=== PATIENT | female | born 1970 | race Caucasian/White ===

== ENCOUNTER 2019-12-19 14:10 | Outpatient (CLI) | payer BC, SELFPAY ==
--- NOTE | 2019-12-19 14:21 | MM_ITS ---
WS: [id number] BILATERAL DIGITAL SCREENING MAMMOGRAPHY WITH CAD CLINICAL INFORMATION: SCREEN HISTORY: Screening mammogram. No current complaints. COMPARISON: May 09, 2015 TECHNIQUE: Bilateral CC and MLO views. FINDINGS: Scattered fibroglandular densities bilaterally. No suspicious focal mass, asymmetry, calcifications, or architectural distortion. No evidence of malignancy. MM/[place] [id number] IMPRESSION: BI-RADS: 1-Negative FOLLOW UP: 1 Year Follow-up Recommend return to annual screening mammography.
== END 2019-12-19 14:11 | disposition home or self-care (01) ==
LOC: RADSHAW 14:17
PROVIDERS: PCP Family Medicine; Visit Provider Family Medicine
DX: Z12.31 Encounter for screening mammogram for malignant neoplasm of breast (principal)
CPT/HCPCS: 77067

== ENCOUNTER 2020-10-22 10:37 | Outpatient (CLI) | payer BC, SELFPAY ==
--- NOTE | 2020-10-22 10:42 | MR_ITS ---
WS: [id number] MRI ORBITS with and without CONTRAST. COMPARISON: None Multiplanar, multisequence imaging is performed with and without contrast. No acute infarct or hemorrhage identified. On the T2 and FLAIR sequences there is confluent and scatt ered T2 and FLAIR signal hyperintensities within a periventricular/pericallosal distribution which is more than expected for age. There is a perpendicular distribution of these white matter lesions in r elationship to the corpus callosum. No obvious enhancement of these white matter lesions. On the T1 s equence no large area of necrotic or low attenuation disease. There is also increased signal centrall y within the nayeli. No definite cerebellar abnormalities. There are a few white matter lesions in the temporal lobes. No inferior displacement of cerebellar tonsils. Clivus and pituitary gland are normal. Normal size an d signal within the optic nerves. No definite transient trapping or optic neuritis at this time. No p rotrusion of the disc into the globe. Globes are symmetric bilaterally. No retrobulbar mass. Bilateral cervical chain lymph nodes measure up to 1 cm. MR/MR orbit face neck wo/w* [id number] IMPRESSION: 1. No evidence for optic neuritis or mass. 2. Significant white matter lesions within the brain in a distribution suggest husam of demyelinating disease/multiple sclerosis. Differential would also includ e Lyme disease. 3. No enhancing demyelinating lesion.
[2020-10-22] MEDS: gadobenate dimeglumine 20 mL vial IV (11:35)
== END 2020-10-22 10:38 | disposition home or self-care (01) ==
LOC: RADSHAW 10:41
PROVIDERS: PCP Family Medicine; Visit Provider Ophthalmology
DX: H47.10 Unspecified papilledema (principal)
CPT/HCPCS: 70543; A9577

== ENCOUNTER 2021-07-30 16:34 | Emergency (ER) | payer BC, SELFPAY ==
[2021-07-30 17:27] VITALS: BP 99/88; PULSE 78; RESP 16; TEMP 37.2; O2SAT 89
--- NOTE | 2021-07-30 17:34 | XRR_ITS ---
PROCEDURE INFORMATION: Exam: XR Chest Exam date and time: 07/30/2021 5:34 PM Age: 51 years old Clinical indication: Cough and shortness of breath; Additional info: Dyspnea/cough TECHNIQUE: Imaging protocol: XR of the chest. Views: 1 view. COMPARISON: MR orbit face neck wo/w* [id number] 10/22/2020 10:57 AM FINDINGS: Lungs: Bibasilar opacities are noted which may represent pneumonia. Pleural spaces: Unremarkable. No pleural effusion. No pneumothorax. Heart/Mediastinum: Unremarkable. No cardiomegaly. Bones/joints: Unremarkable. XR/XR chest 1V portable [id number] IMPRESSION: Bibasilar pneumonia.
--- NOTE | 2021-07-30 18:11 | ED_ITS ---
Documented by User: Trev Kwong DO 07/31/21 06:25 HPI - COVID General: Chief Complaint: COVID symptoms Stated Complaint: FEVER, N/V, COUGH Time Seen by Provider: 07/30/21 17:33 Triage information: Has fever, cough or shortness of breath . No known COVID + exposure last 14 days History of Present Illness: HPI Narrative: 51-year-old female presents to the emergency room with complaints of nausea vomiting cough and fever that began 5 days ago. She had temps at home up to 101-103 at times. She is not had any anosmia or diarrhea. She has not previously been vaccinated for Covid her cough has been nonproductive. She is not normally on any oxygen but is now requiring 2 L by nasal cannula to maintain sats in the mid 90s. Room air O2 sat on presentation was 89% MD complaint: has COVID symptoms Prior covid testing: no COVID 19 common symptoms: positive fever(s), chills, cough, non-productive cough, dyspnea, fatigue, body aches, headache(s), nasal congestion, nausea and vomiting; negative productive cough, loss of sense of smell and/or taste, throat pain or diarrhea COVID 19 other sytmptoms: positive requiring oxygen; negative chest pain Onset (ago): day(s) (5) Severity: moderate Pertinent comorbid conditions: obesity Treatment prior to arrival: none COVID Results: No Data to Display Review of Systems Const: Reports: fever(s), chills, body aches and fatigue ENMT: Reports: nasal congestion; Denies: throat pain Card: Denies: chest pain Resp: Reports: dyspnea and non-productive cough; Denies: productive cough GI: Reports: nausea and vomiting; Denies: diarrhea : Denies: flank pain, difficulty voiding, dysuria, urinary frequency or urinary urgency Skin/Breast: Denies: rash or pruritus Neuro: Reports: headache(s) PFSH ED PFSH: Medical History Obesity Physical Exam Const: GENERAL APPEARANCE: cooperative and comfortable ORIENTATION/CONSCIOUSNESS: Yes awake, Yes oriented to person, Yes oriented to place and Yes oriented to time HENMT: COMMON NORMALS: normocephalic, atraumatic and hearing grossly normal bilaterally HEAD & SCALP: normocephalic and atraumatic Neck/C-Spine: COMMON NORMALS: no JVD Resp: AUSCULTATION: crackles and wheezes Cardio: COMMON NORMALS: no JVD, regular rate, regular rhythm and No murmurs pr esent (Cardio) RATE: regular rate RHYTHM: regular rhythm GI: COMMON NORMALS: Soft to palpation and No hepatosplenomegaly present AUSCULTATION: Yes normoactive bowel sounds PALPATION: Yes Soft to palpation, No Tenderness to palpation present (GI), No Guarding due to palpation present (GI) and Yes No hepatosplenomegaly present Extremity: COMMON NORMALS: normal to inspection, capillary refill normal, no clubbing, cyanosis or edema, no calf tenderness and no pedal edema Neuro: SENSORIUM/ORIENTATION: Yes oriented to person, Yes oriented to place and Yes oriented to time Skin: COMMON NORMALS: no rashes or lesions noted GENERAL SKIN EXAM: no rashes or lesions noted Course Vital Signs: Vital signs: Vital Signs Temperature 99.0 F 07/30/21 17:27 Pulse Rate 81 07/30/21 18:49 Respiratory Rate 23 H 07/30/21 18:49 Blood Pressure 126/82 07/30/21 18:49 Pulse Oximetry 97 07/30/21 18:49 MDM - COVID MDM Narrative: Medical decision making narrative: Initial O2 sat 89% corrected with 2 to 3 L by nasal cannula. Laboratory tests pending discussed with Dr. Vila care transferred to Dr. Vila at change of see note final diagnosis and disposition. Lab Data: Labs: Lab Results 07/30/21 07/30/21 07/30/21 18:45 18:45 18:45 WBC 10.1 10^3/uL H 10 ^3/uL (4.0-10.0) RBC 4.87 10^6/uL 10^6 /uL (4.1-5.3) Hgb 12.9 g/dL g/dL (11.5-15.3) Hct 39.6 % % (37.0-47.0) MCV 81.3 fl fl (81-99) MCH 26.5 pg L pg (28.0-34.0) MCHC 32.6 g/dL g/dL (30.0-36.0) RDW 13.2 % % (12.1-15.1) Plt Count 169 10^3/cmm 10^3 /cmm (130-400) MPV 12.0 fL H fL (7.4-10.4) Lymph % (Auto) Not Reportable Henderson % (Auto) Not Reportable Lymph # (Auto) Not Reportable [place] # (Auto) Not Reportable Total Counted Atypical Lymphs % Segmented Neutroph ils Band Neutrophils Lymphocytes (Manua l) Monocytes (Manual) Eosinophils (Manua l) Basophils (Manual) Platelet Estimate Sodium 136 mmol/L mmol/L (136-145) Potassium 4.0 mmol/L mmol/L (3.5-5.1) Chloride 98 mmol/L mmol/L (98-107) Carbon Dioxide 19 mmol/L L mmol/ L (22-29) Anion Gap 23.0 H (5-19) BUN 46 mg/dL H mg/dL (6-20) Creatinine 2.0 mg/dL H mg/dL (0.5-0.9) GFR Calculation 26.3 mL/min L mL/ min (90-130) Glucose 112 mg/dL mg/dL (65-115) Calculated Osmolal ity 295 mOsm/kg mOsm/ kg (285-295) Calcium 8.4 mg/dL L mg/dL (8.5-10.5) Total Bilirubin 0.4 mg/dL mg/dL (0.15-1.2) AST 24 U/L U/L (0-32) ALT 10 U/L U/L (0-33) Alkaline Phosphata se 61 IU/L IU/L (35-105) Total Protein 7.4 g/dL g/dL (6.6-8.7) Albumin 3.4 g/dL L g/dL (3.5-5.2) Globulin 4.0 g/dL g/dL (1.3-4.6) Nasal Influ A H1 2 009 PCR Not detected (NOT DETECT) Coronavirus 229E ( PCR) Not detected (NOT DETECT) Influenza A (H1) P CR Not detected (NOT DETECT) Influenza A (H3) P CR Not detected (NOT DETECT) Influenza Type A ( PCR) Not detected (NOT DETECT) Influenza Type B ( PCR) Not detected (NOT DETECT) SARS-CoV-2 (PCR) Detected A (NOT DETECT) 07/30/21 18:45 WBC RBC Hgb Hct MCV MCH MCHC RDW Plt Count MPV Lymph % (Auto) Henderson % (Auto) Lymph # (Auto) Henderson # (Auto) Total Counted 100 (0-100) Atypical Lymphs % 0.0 % % (0-5) Segmented Neutroph ils 79 % % Band Neutrophils 5.0 % % Lymphocytes (Manua l) 11 % % Monocytes (Manual) 4.0 % % Eosinophils (Manua l) 1 % % Basophils (Manual) 0.0 % % Platelet Estimate Normal (Normal) Sodium Potassium Chloride Carbon Dioxide Anion Gap BUN Creatinine GFR Calculation Glucose Calculated Osmolal ity Calcium Total Bilirubin AST ALT Alkaline Phosphata se Total Protein Albumin Globulin Nasal Influ A H1 2 009 PCR Coronavirus 229E ( PCR) Influenza A (H1) P CR Influenza A (H3) P CR Influenza Type A ( PCR) Influenza Type B ( PCR) SARS-CoV-2 (PCR) COVID Results: No Data to Display Discharge Plan Discharge Patient Disposition: Home Clinical Impression: COVID-19 Condition: Stable Prescriptions: New azithromycin 250 mg tablet See Rx Instructions .ROUTE .COMPLEX Qty: 6 RF: 0 albuterol sulfate 90 mcg/actuation HFA aerosol inhaler 2 inh INHALATION Q6H PRN (Reason: shortness of breath or wheezing) Qty: 8 RF: 0 ondansetron 4 mg tablet,disintegrating 4 mg PO Q6H PRN (Reason: nausea and vomiting) Qty: 14 RF: 0 Discharge Orders: Discharge ED (Routine); Ordered 07/30/21 Ordered By: Mila Vila Other Ambulatory Orders: DME: Oxygen (Order) Location: None Selected Ordered By: Mila Vila Referrals: Fabián Sharma MD [Primary Care Provider] - 1-3 days Discharge Diet: Advance as tolerated Discharge Activity: Resume usual activity Patient Instructions: COVID-19 (Coronavirus Disease 2019) (ED) Coding Level of Care Code ED Automation And Controls Instructor for Chg Fwd Exam Comprehensive Documented by User: Mila Vila MD 07/30/21 21:19 HPI - COVID General: Chief Complaint: COVID symptoms Stated Complaint: FEVER, N/V, COUGH Time Seen by Provider: 07/30/21 17:33 COVID Results: No Data to Display [facility] ED PFSH: Medical History Obesity Course Vital Signs: Vital signs: Vital Signs Temperature 99.0 F 07/30/21 17:27 Pulse Rate 81 07/30/21 18:49 Respiratory Rate 23 H 07/30/21 18:49 Blood Pressure 126/82 07/30/21 18:49 Pulse Oximetry 97 07/30/21 18:49 MDM - COVID MDM Narrative: Medical decision making narrative: Patient presents here with cough dyspnea bibasilar pneumonia on x-ray this is due to Covid pneumonia. Patient is Covid positive here states she is got date on symptoms we will set her up on home oxygen she is actually around 93% here when she ambulated with RT will place her on azithromycin patient given a steroid here she will be prescribed albuterol inhaler she is to monitor oxygen at home if she has hypoxia she is to return she understands and agrees to plan. Lab Data: Labs: Lab Results 07/30/21 07/30/21 07/30/21 18:45 18:45 18:45 WBC 10.1 10^3/uL H 10 ^3/uL (4.0-10.0) RBC 4.87 10^6/uL 10^6 /uL (4.1-5.3) Hgb 12.9 g/dL g/dL (11.5-15.3) Hct 39.6 % % (37.0-47.0) MCV 81.3 fl fl (81-99) MCH 26.5 pg L pg (28.0-34.0) MCHC 32.6 g/dL g/dL (30.0-36.0) RDW 13.2 % % (12.1-15.1) Plt Count 169 10^3/cmm 10^3 /cmm (130-400) MPV 12.0 fL H fL (7.4-10.4) Lymph % (Auto) Not Reportable Henderson % (Auto) Not Reportable Lymph # (Auto) Not Reportable Henderson # (Auto) Not Reportable Total Counted Atypical Lymphs % Segmented Neutroph ils Band Neutrophils Lymphocytes (Manua l) Monocytes (Manual) Eosinophils (Manua l) Basophils (Manual) Platelet Estimate Sodium 136 mmol/L mmol/L (136-145) Potassium 4.0 mmol/L mmol/L (3.5-5.1) Chloride 98 mmol/L mmol/L (98-107) Carbon Dioxide 19 mmol/L L mmol/ L (22-29) Anion Gap 23.0 H (5-19) BUN 46 mg/dL H mg/dL (6-20) Creatinine 2.0 mg/dL H mg/dL (0.5-0.9) GFR Calculation 26.3 mL/min L mL/ min (90-130) Glucose 112 mg/dL mg/dL (65-115) Calculated Osmolal ity 295 mOsm/kg mOsm/ kg (285-295) Calcium 8.4 mg/dL L mg/dL (8.5-10.5) Total Bilirubin 0.4 mg/dL mg/dL (0.15-1.2) AST 24 U/L U/L (0-32) ALT 10 U/L U/L (0-33) Alkaline Phosphata se 61 IU/L IU/L (35-105) Total Protein 7.4 g/dL g/dL (6.6-8.7) Albumin 3.4 g/dL L g/dL (3.5-5.2) Globulin 4.0 g/dL g/dL (1.3-4.6) Nasal Influ A H1 2 009 PCR Not detected (NOT DETECT) Coronavirus 229E ( PCR) Not detected (NOT DETECT) Influenza A (H1) P CR Not detected (NOT DETECT) Influenza A (H3) P CR Not detected (NOT DETECT) Influenza Type A ( PCR) Not detected (NOT DETECT) Influenza Type B ( PCR) Not detected (NOT DETECT) SARS-CoV-2 (PCR) Detected A (NOT DETECT) 07/30/21 18:45 WBC RBC Hgb Hct MCV MCH MCHC RDW Plt Count MPV Lymph % (Auto) Henderson % (Auto) Lymph # (Auto) Henderson # (Auto) Total Counted 100 (0-100) Atypical Lymphs % 0.0 % % (0-5) Segmented Neutroph ils 79 % % Band Neutrophils 5.0 % % Lymphocytes (Manua l) 11 % % Monocytes (Manual) 4.0 % % Eosinophils (Manua l) 1 % % Basophils (Manual) 0.0 % % Platelet Estimate Normal (Normal) Sodium Potassium Chloride Carbon Dioxide Anion Gap BUN Creatinine GFR Calculation Glucose Calculated Osmolal ity Calcium Total Bilirubin AST ALT Alkaline Phosphata se Total Protein Albumin Globulin Nasal Influ A H1 2 009 PCR Coronavirus 229E ( PCR) Influenza A (H1) P CR Influenza A (H3) P CR Influenza Type A ( PCR) Influenza Type B ( PCR) SARS-CoV-2 (PCR) Imaging Data: CXR: Attestation: I personally reviewed and interpreted this imaging study as follows: Radiologist's impression: [address] [address] XRay Report Signed Patient: Wilma Farfan Unit #: [id number] : 1970 Age/Sex: 51 / F ADM Date: 07/30/21 Loc: ER Room/Bed: Attending Dr: Ordering Provider/Ordering MD: Trev Kwong DO Date of Service: 07/30/21 Procedure(s): XR chest 1V portable [id number] Accession Number(s): [id number] Report Number: [id number] PROCEDURE INFORMATION: Exam: XR Chest Exam date and time: 07/30/2021 5:34 PM Age: 51 years old Clinical indication: Cough and shortness of breath; Additional info: Dyspnea/cough TECHNIQUE: Imaging protocol: XR of the chest. Views: 1 view. COMPARISON: MR orbit face neck wo/w* [id number] 10/22/2020 10:57 AM FINDINGS: Lungs: Bibasilar opacities are noted which may represent pneumonia. Pleural spaces: Unremarkable. No pleural effusion. No pneumothorax. Heart/Mediastinum: Unremarkable. No cardiomegaly. Bones/joints: Unremarkable. XR/XR chest 1V portable [id number] IMPRESSION: Bibasilar pneumonia. Dictated By: Enrrique Fortune MD Signed By: Enrrique Fortune MD Signed Date/Time: 07/30/211828 DD/ 173 COVID Results: No Data to Display Discharge Plan Discharge Patient Disposition: Home Clinical Impression: COVID-19 Condition: Stable Prescriptions: New azithromycin 250 mg tablet See Rx Instructions .ROUTE .COMPLEX Qty: 6 RF: 0 albuterol sulfate 90 mcg/actuation HFA aerosol inhaler 2 inh INHALATION Q6H PRN (Reason: shortness of breath or wheezing) Qty: 8 RF: 0 ondansetron 4 mg tablet,disintegrating 4 mg PO Q6H PRN (Reason: nausea and vomiting) Qty: 14 RF: 0 Discharge Orders: Discharge ED (Routine); Ordered 07/30/21 Ordered By: Mila Vila Other Ambulatory Orders: DME: Oxygen (Order) Location: None Selected Ordered By: Mila Vila Referrals: Fabián Sharma MD [Primary Care Provider] - 1-3 days Discharge Diet: Advance as tolerated Discharge Activity: Resume usual activity Patient Instructions: COVID-19 (Coronavirus Disease 2019) (ED) Coding Level of Care Code ED Automation And Controls Instructor for [place] Fwd Exam Comprehensive
[2021-07-30 18:49] VITALS: BP 126/82; PULSE 81; RESP 23; O2SAT 96; O2SAT 97
[2021-07-30 18:52] LABS: Hematocrit 39.6 % (37.0-47.0); Hemoglobin 12.9 g/dL (11.5-15.3); Mean Corpuscular HGB Conc 32.6 g/dL (30.0-36.0); Mean Corpuscular Hemoglobin 26.5 pg (28.0-34.0); Mean Corpuscular Volume 81.3 fl (81-99); Platelet Count 169 10^3/cmm (130-400); Red Blood Count 4.87 10^6/uL (4.1-5.3); Red Cell Distribution Width 13.2 % (12.1-15.1); White Blood Count 10.1 10^3/uL (4.0-10.0)
[2021-07-30 19:16] LABS: Alanine Aminotransferase 10 U/L (0-33); Albumin Level 3.4 g/dL (3.5-5.2); Alkaline Phosphatase 61 IU/L (35-105); Blood Urea Nitrogen 46 mg/dL (6-20); Calcium 8.4 mg/dL (8.5-10.5); Carbon Dioxide 19 mmol/L (22-29); Chloride 98 mmol/L (98-107); Glomerular Filtration Rate 26.3 mL/min (90-130); Glucose 112 mg/dL (65-115); Osmolality Calculated 295 mOsm/kg (285-295); Sodium 136 mmol/L (136-145); Total Bilirubin 0.4 mg/dL (0.15-1.2); Total Protein 7.4 g/dL (6.6-8.7)
[2021-07-30 19:17] LABS: Aspartate Amino Transferase 24 U/L (0-32)
[2021-07-30 19:30] LABS: Lymphocytes 11 %; Segmented Neutrophils 79 %; Total Cells Counted 100 (0-100)
[2021-07-30 19:31] LABS: Eosinophils 1 %; Platelet Estimate Normal (Normal)
[2021-07-30 20:45] LABS: Adenovirus Not Detected (NOT DETECT); Chlamydia Pneumoniae Not Detected (NOT DETECT); Coronavirus 229E,HKU1,NL63,OC4 Not Detected (NOT DETECT); Human Metapneumovirus Not Detected (NOT DETECT); Human Rhinovirus/Enterovirus Not Detected (NOT DETECT); Influenza A Not Detected (NOT DETECT); Influenza A H1 Not Detected (NOT DETECT); Influenza A H1-2009 Not Detected (NOT DETECT); Influenza A H3 Not Detected (NOT DETECT); Influenza B Not Detected (NOT DETECT); Mycoplasma Pneumoniae Not Detected (NOT DETECT); Parainfluenza Virus Type 1 Not Detected (NOT DETECT); Parainfluenza Virus Type 2 Not Detected (NOT DETECT); Parainfluenza Virus Type 3 Not Detected (NOT DETECT); Parainfluenza Virus Type 4 Not Detected (NOT DETECT); Respiratory Syncytial Virus A Not Detected (NOT DETECT); Respiratory Syncytial Virus B Not Detected (NOT DETECT); SARS-COV-2 Detected (NOT DETECT)
[2021-07-30 20:57] LABS: Results from Genmark
[2021-07-30] MEDS: dexamethasone 10 mg/mL INJ 6 MG IVP (22:36)
== END 2021-07-30 22:38 | disposition home or self-care (01) ==
PROVIDERS: Family Medicine; Physician Assistant; Emergency Provider Emergency Medicine; PCP Family Medicine
DX: U07.1 COVID-19 (principal)
CPT/HCPCS: 71045; 80053; 85007; 85025; 87631; 87635; 96374; 99284; J1100

== ENCOUNTER 2024-02-16 07:35 | Outpatient (CLI) | payer OTHER, MEDICAID, SELFPAY ==
--- NOTE | 2024-02-16 07:49 | MM_ITS ---
WS: [id number] BILATERAL SCREENING DIGITAL TOMOSYNTHESIS MAMMOGRAM WITH CAD HISTORY: SCREENING COMPARISON: 12/19/2019, 05/09/2015 Bilateral CC and MLO views with tomosynthesis and synthetic mammography submitted. Computer aided det ection analyzed. Breast composition: There are scattered areas of fibroglandular density. No suspicious masses, microc alcifications or architectural distortion. MM/[place] [id number] IMPRESSION: BI-RADS: 1-Negative FOLLOW UP: 1 Year Follow-up
== END 2024-02-16 07:36 | disposition home or self-care (01) ==
LOC: RAD 07:35
PROVIDERS: PCP Family Medicine; Visit Provider Nurse Practitioner
DX: Z12.31 Encounter for screening mammogram for malignant neoplasm of breast (principal); R21 Rash and other nonspecific skin eruption
CPT/HCPCS: 77063; 77067

== ENCOUNTER 2025-02-19 08:35 | Outpatient (CLI) | payer OTHER, MEDICAID, SELFPAY ==
--- NOTE | 2025-02-19 08:46 | MM_ITS ---
WS: [id number] BILATERAL 3D TOMOSYNTHESIS DIGITAL SCREENING MAMMOGRAPHY WITH CAD CLINICAL INFORMATION: SCREENING MAMMOGRAM HISTORY: Screening mammogram. No current complaints. COMPARISON: 2023 TECHNIQUE: Bilateral CC and MLO views. FINDINGS: Scattered fibroglandular densities bilaterally. No suspicious focal mass, asymmetry, calcifications, or architectural distortion. No evidence of malignancy. MM/MM scr tomosynthesis [id number] IMPRESSION: DENSITY: There are scattered areas of fibroglandular density. BI-RADS: 1 - Negative. FOLLOW UP: 1 Year Follow-up Recommend return to annual screening mammography.
== END 2025-02-19 08:36 | disposition home or self-care (01) ==
LOC: RAD 08:37
PROVIDERS: PCP Family Medicine; Visit Provider Family Medicine
DX: Z12.31 Encounter for screening mammogram for malignant neoplasm of breast (principal); R92.323 Mammographic fibroglandular density, bilateral breasts
CPT/HCPCS: 77063; 77067